=== PATIENT | female | born 1960 | race Caucasian/White ===

== ENCOUNTER 2017-04-23 06:39 | Day surgery (SDC) | payer BC ==
[2017-04-17 15:38] LABS: BASOPHILS 0.3 %; BASOPHILS ABSOLUTE 0.03 10/3/uL (0.0-0.16); EOSINOPHILS ABSOLUTE 0.39 10/3/uL (0.0-0.53); HEMATOCRIT 41.5 % (36.0-48.0); HEMOGLOBIN 13.5 g/dL (12.0-16.0); IMMATURE GRANULOCYTES 0.1 %; IMMATURE GRANULOCYTES ABSOLUTE 0.01 10/3/uL (0.0-0.11); LYMPHOCYTES 22.9 %; LYMPHOCYTES ABSOLUTE 2.24 10/3/uL (0.67-4.30); MANUAL DIFF NO %; MEAN CORPUS HGB CONC 32.5 g/dL (32.0-36.0); MEAN CORPUSCULAR HEMOGLOB 28.3 pg (26.0-34.0); MEAN PLATELET VOLUME 8.8 fL (9.2-13.0); MONOCYTES 7.5 %; MONOCYTES ABSOLUTE 0.73 10/3/uL (0.21-1.20); NEUTROPHILS 65.2 %; NEUTROPHILS ABSOLUTE 6.38 10/3/uL (2.02-8.40); PLATELET COUNT 270 10/3/uL (150-400); RBC DISTRIBUTION WIDTH 13.3 % (12.0-16.0); RED CELL COUNT 4.77 10/6/uL (4.0-5.6); WHITE BLOOD CELLS 9.8 10/3/uL (4.5-10.5)
[2017-04-17 15:46] LABS: PARTIAL THROMBO TIME 29.7 SEC (22.5-37.2)
[2017-04-17 15:48] LABS: BUN (BLOOD UREA NITROGEN) 23 MG/DL (6-23); CALCIUM, SERUM 10.8 MG/DL (8.5-10.4); CHLORIDE, SERUM 105 MMOL/L (96-112); CO2 (CARBON DIOXIDE) 29 MMOL/L (24-34); CREATININE 0.68 MG/DL (0.55-1.02); GFR AFRICAN AMERICAN 113 ML/MIN (>=60); GFR NON AFRICAN AMERICAN 97 ML/MIN (>=60); GLUCOSE, SERUM 83 MG/DL (60-99); POTASSIUM, SERUM 3.6 MMOL/L (3.5-5.3); SODIUM, SERUM 139 MMOL/L (135-148)
--- NOTE | ~2017-04-23 | OP ---
Record Of Operation [facility] [address] [place]. [address] NAME: CIARAN TAYLOR : 58 STATUS : REG [facility] [place] PAT#: [id number] AGE: 56 ADM/REG DATE : 04/23/17 MR#: [id number] REPORT SERV DATE: 04/23/17 DICTATED BY: JUMA DONOVAN DATE: 04/23/17 REPORT STATUS : Draft TRANSCRIBED BY: SAILAJAL DATE: 04/23/17 DATE OF PROCEDURE: 04/23/2017 PROCEDURE: Right inferior parathyroidectomy. PREOPERATIVE DIAGNOSIS: Primary hyperparathyroidism. POSTOPERATIVE DIAGNOSIS: Primary hyperparathyroidism. ANESTHESIA: General endotracheal. COMPLICATION: None. FINDINGS: The patient was taken the OR and placed supine position. She then was anesthetized, prepped, and draped in standard fashion. Cervical area was injected with 1% Xylocaine with epinephrine. A low collar incision was made. Subplatysmal planes were raised in a superior and inferior direction. Dissection then proceeded through the midline of the strap muscles. The right thyroid lobe was identified and the strap muscles were dissected from the capsule by blunt dissection. The patient was noted to have much peritracheal fat. Dissection proceeded to reveal what appeared to be a very large inferior parathyroid adenoma. Recurrent laryngeal nerve was identified coursing directly over the mid point from an inferior to superior direction over the adenoma. Meticulous dissection removed the recurrent laryngeal nerve from the enlarged parathyroid. Circumferential dissection was performed with blunt and sharp dissection with bipolar cautery and Harmonic scalpel used. The parathyroid gland was sent for frozen section. Frozen section was consistent with adenoma or enlarged parathyroid gland. PTH fell from 180 to 20s. The patient was noted to have no bleeding. Wound was irrigated. Valsalva maneuver performed with no evidence of bleeding. Recurrent laryngeal nerve was intact as verified by the NIM nerve stimulator at the end of the case. Foam was placed in the tracheal gutter. Strap muscles were loosely reapproximated with 2-0 chromic suture. Platysma was reapproximated with 2-0 chromic suture. 4-0 Monocryl was used for subcuticular closure. Steri-Strips were placed. The patient then was awakened, extubated, and taken to recovery in good condition. RAFAEL/EVELINE Juma Donovan M.D. / [id number] CC: Bhupinder Crain M.D.
[~2017-04-23 06:39] MED LIST: ALEVE220 MG PO; ASAB PO; BENICAR HCT1 TA2 PO; C5 PO; CALCIUM/MAGNESIUM PO; CELEBREX2 PO; DSS PO; DURAFLEX PO; FISH OIL1200 MG PO; HYZAAR 100/25 T1 TAB PO; IND25 PO; INTEGRA IRON PO; INTEGRA PLUS C1 EACH PO; IRON PO; IRON325 MG PO; MULTIPLE VIT PO; PCET PO; PYR200 PO; TOPXL25 PO; VITAMIN D31000 UNIT PO; ZANTAC 150 PO
[2017-04-23 08:06] LABS: PTH (INTRAOPERATIVE) 179.5 PG/ML (10.0-65.0); PTH TAT 0 Hrs 00 Mins
[2017-04-23 10:08] LABS: PTH (INTRAOPERATIVE) 23.8 PG/ML (10.0-65.0); PTH TAT 0 Hrs 00 Mins
[2017-04-23 10:09] LABS: PTH (INTRAOPERATIVE) 29.8 PG/ML (10.0-65.0); PTH TAT 0 Hrs 00 Mins
== END 2017-04-23 13:13 | disposition home or self-care (01) ==
LOC: SDC 06:39
PROVIDERS: Otolaryngology
PROC: 0GBN0ZZ Excision of Right Inferior Parathyroid Gland, Open Approach (ICD-10-PCS; principal; 2017-04-23 07:45)
DX: E21.0 Primary hyperparathyroidism (principal); E66.01 Morbid (severe) obesity due to excess calories; I10 Essential (primary) hypertension; M19.90 Unspecified osteoarthritis, unspecified site; D64.9 Anemia, unspecified; Z79.82 Long term (current) use of aspirin; Z79.899 Other long term (current) drug therapy; Z86.718 Personal history of other venous thrombosis and embolism; Z68.42 Body mass index [BMI] 45.0-49.9, adult; Z90.49 Acquired absence of other specified parts of digestive tract; Z96.641 Presence of right artificial hip joint; Z98.890 Other specified postprocedural states
CPT/HCPCS: 71020; 80048; 83970; 84703; 85025; 85730; 88305; 88313; 88331; 93005; J0330; J0690; J1170; J2250; J2370; J2405; J2550; J3010